=== PATIENT | female | born 1945 | race Caucasian/White ===

== ENCOUNTER → 2017-02-22 | Outpatient (CLI) | payer MEDICARE | LOC: MAMMO 08:52 | DX: Z12.31 Encounter for screening mammogram for malignant neoplasm of breast (principal) | CPT/HCPCS: G0202 ==

== ENCOUNTER → 2017-03-02 | Outpatient (CLI) | payer MEDICARE, BC | LOC: MAMMO 14:18 | DX: N63 Unspecified lump in breast (principal) ==